=== PATIENT | male | born 2000 | race Two or more races ===

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

== ENCOUNTER 2020-06-17 10:46 | Emergency (ER) | payer MEDICAID ==
[~2020-06-17] VITALS: Ht 182.9 cm; Wt 86.2 kg
[~2020-06-17 10:46] MED LIST: OFLO5DRO LEFTEYE
[2020-06-17 10:50] VITALS: BP 131/71
[2020-06-17] MEDS ORDERED: FLUORESCEIN SODIUM OPHTH 1 EA STRIP ONE ×2 (11:04→11:16)
[2020-06-17] MEDS: TETRACAINE HCL 2% OPHTHALIC 30 ML BOTTLE EACHEYE ONE (11:19)
[2020-06-17] MEDS: FLUORESCEIN SODIUM OPHTH 1 EA STRIP OP ONE (11:19)
--- NOTE | 2020-06-17 11:29 | NUR ---
Patient discharged to home in stable condition. Written and verbal after care instructions given. Patient verbalizes understanding of instruction.
== END 2020-06-17 11:30 | disposition home or self-care (01) ==
LOC: ER 10:47
DX: S00.211A Abrasion of right eyelid and periocular area, initial encounter (principal); H00.013 Hordeolum externum right eye, unspecified eyelid; Z79.899 Other long term (current) drug therapy; X58.XXXA Exposure to other specified factors, initial encounter; Y93.89 Activity, other specified; Y92.89 Other specified places as the place of occurrence of the external cause; Y99.8 Other external cause status